=== PATIENT | female | born 2005 | race Caucasian/White ===

== ENCOUNTER 2023-03-31 10:14 | Emergency (ER) | payer OTHER, SELFPAY ==
[2023-03-31 10:36] VITALS: BP 122/75; PULSE 95; RESP 16; TEMP 36.5; O2SAT 99; BMI 28.1
--- NOTE | 2023-03-31 10:55 | ED_ITS ---
HPI - General Adult General Time Seen by Provider: 10:55 Date Seen: 03/31/23 Chief complaint: Sore Throat Stated complaint: Likely strep--white spots in throat Time Seen by Provider: 03/31/23 10:33 Source: patient Mode of arrival: ambulatory Limitations: no limitations History of Present Illness HPI narrative: Patient is a 17-year-old female that had occasional strep when she was younger, had some white spots in her throat and has a sore throat since yesterday. Is able to swallow, no trismus, no other specific complaints. She has been largely healthy Related Data Home Medications Medication Instructions Recorded Confirmed No Known Home Medications 03/31/23 03/31/23 Allergies Allergy/AdvReac Type Severity Reaction Status Date / Time No Known Drug Allergies Allergy Verified 03/31/23 10:42 Review of Systems Status of ROS: Reports: 6 or more systems reviewed and unremarkable except as noted in History and below PFSH PFS Social History Smoking Status: Never smoker Do you use any of these nicotine containing products: None Second hand tobacco smoke exposure: No How often do you have a drink containing alcohol: never How often do you have six or more drinks on one occasion: Never AUDIT-C Alcohol total score: 0 Non-prescribed substance use: denies use service: No Exam Narrative: Exam Narrative: Objective: Vital signs are unremarkable within normal limits and afebrile O2 sat excellent HEENT shows some small whitish material on her tonsils, they are not enlarged, there is no obvious peritonsillar abscess. Stable to open her mouth fully no trismus: neck is supple Const: Vital Signs, click to edit/add: Vital Signs - 24 hr 03/31/23 10:36 Temperature 97.7 F Pulse Rate [Pulse Oximeter] 95 Respiratory Rate 16 Blood Pressure [Ri t Upper Arm] 122/75 Pulse Oximetry 99 Oxygen Delivery Me thod Room Air Course Vital Signs Vital signs: Initial Vital Signs Temperature 97.7 F 03/31/23 10:36 Temperature Source Temporal Artery Scan 03/31/23 10:36 Pulse Rate 95 03/31/23 10:36 Pulse Rhythm Regular 03/31/23 10:36 Pulse Strength 3+ Normal 03/31/23 10:36 Respiratory Rate 16 03/31/23 10:36 Blood Pressure 122/75 03/31/23 10:36 Blood Pressure Mean 90 03/31/23 10:36 Blood Pressure Position Sitting 03/31/23 10:36 Pulse Oximetry 99 03/31/23 10:36 Oxygen Delivery Method Room Air 03/31/23 10:36 Vital Signs Temperature 97.7 F 03/31/23 10:36 Pulse Rate 95 03/31/23 10:36 Respiratory Rate 16 03/31/23 10:36 Blood Pressure 122/75 03/31/23 10:36 Pulse Oximetry 99 03/31/23 10:36 Oxygen Delivery Method Room Air 03/31/23 10:36 Temperature 97.7 F 03/31/23 10:36 Pulse Rate 95 03/31/23 10:36 Respiratory Rate 16 03/31/23 10:36 Blood Pressure 122/75 03/31/23 10:36 Pulse Oximetry 99 03/31/23 10:36 Oxygen Delivery Method Room Air 03/31/23 10:36 Medical Decision Making MDM Narrative Medical decision making narrative: 17-year-old female with a history of sore throat for 24 hours, check strep, check COVID/influenza/RSV. Disposition pending findings above, she has no other specific complaints, no abdominal pain no fatigue. Will check her strep test if this is positive treat if negative and viral likely could follow up by phone wit h the results of her viral studies. Fluids rest observation Tylenol and follow up with primary care to 3 days not improving changes concerns worsening return to ED. Addendum 11:37 a.m.: Patient's rapid strep test is negative DNA test, her viral studies are pending. Will call them back to her when they return. Rest symptomatic management Tylenol as needed, follow-up with primary care in 3-4 da ys not improving. Possibility of a exist that she could have mononucleosis or some other type viral illness, but she has only been sick for 1 day and I do not think it be worth testing at this time Lab Data Labs: Lab Results 03/31/23 Range/Units 10:45 SARS-CoV-2 (PCR) Negative SARS-CoV-2 (Negative) Influenza Type A (PCR) Negative PCR FLU A (Negative) Influenza Type B (PCR) Negative PCR FLU B (Negative) RSV (PCR) Negative PCR RSV (Negative) Group A Strep DNA NOT DETECTED (Not Detectd) Discharge Plan Discharge Clinical Impression: Pharyngitis Patient Disposition: Home, Self-Care Condition: Stable Additional Instructions: Rest, fluids, Tylenol as needed, recheck with primary care in 3-4 days not improving certainly sooner change concerns. Activity Level: Light activity Discharge Diet: Regular Prescriptions: No Action No Known Home Medications Follow Up/Referrals: Vikram Kerns MD [Primary Care Provider] - Stand Alone Forms: [employer] Info Instructions
[2023-03-31 11:32] LABS: Strep A DNA Probe* NOT DETECTED (Not Detectd)
[2023-03-31 11:37] LABS: PCR FLU A Negative PCR FLU A (Negative); PCR FLU B Negative PCR FLU B (Negative); PCR RSV Negative PCR RSV (Negative)
[2023-03-31 11:44] LABS: SARS PCR* Negative SARS-CoV-2 (Negative)
== END 2023-03-31 11:59 | disposition home or self-care (01) ==
PROVIDERS: Emergency Provider Family Medicine; PCP Family Medicine
DX: J02.9 Acute pharyngitis, unspecified (principal)
CPT/HCPCS: 87631; 87651; 99282; 99283